=== PATIENT | male | born 1995 | race Caucasian/White ===

== ENCOUNTER → 2016-12-14 | Outpatient (CLI) | payer OTHER | LOC: LAB 21:57 | DX: Z02.83 Encounter for blood-alcohol and blood-drug test (principal) | CPT/HCPCS: 36415 ==

== ENCOUNTER 2020-06-19 22:14 | Emergency (ER) | payer OTHER ==
[~2020-06-19 22:14] MED LIST: BENADRYL 25MG C25 MG PO; CYCLOBENZAPRINE10 MG PO; IBU400 MG PO; LODINE CAP 300300 MG PO; NAPROSYN500 MG PO; NEOSPORIN OIN14.2 GM TP; PREDNISONE 50 M50 MG PO; PROTONIX40 MG PO; TESSALON PERLE100 MG PO; ZOFRAN ODT 4 MG4 MG PO; ZOFRAN4 MG PO; ZYRTEC10 MG PO
[2020-06-19] MEDS ORDERED: ZOFRAN ODT 4 MG4 MG PO (23:26)
== END 2020-06-19 23:31 | disposition home or self-care (01) ==
LOC: ER1 22:14
DX: R11.2 Nausea with vomiting, unspecified (principal)
CPT/HCPCS: 99283